=== PATIENT | female | born 1940 | race American Indian/Alaskan Native ===

== ENCOUNTER 2017-01-10 10:07 | Outpatient (CLI) | payer MEDICARE ==
--- NOTE | 2017-01-10 11:34 | Ultrasound Report ---
ULTRASOUND RENAL INDICATION: Chronic kidney disease, stage III. Diabetes mellitus. COMPARISON: None similar at this institution. FINDINGS: Renal sonography demonstrates top normal renal cortical echogenicity. Grossly preserved contours. No hydronephrosis. Slight hepatic echogenic coarsening. Right kidney measures 9.3 x 3.7 x 4.4 cm with cortical thickness of 1.5 cm. Left kidney estimated at 10.6 x 5.5 x 4.6 cm with cortical thickness of 1.6 cm. Approximately 1.8 cm cortical cyst superomedially. Urinary bladder suboptimally distended and assessed. CONCLUSION: No acute renal sonographic abnormality with few incidental findings, as described. Thank you for the opportunity to participate in this patient's care.
== END 2017-01-10 10:08 | disposition home or self-care (01) ==
LOC: US 10:07
PROVIDERS: ATTEND Internal Medicine Nephrology
DX: E11.22 Type 2 diabetes mellitus with diabetic chronic kidney disease (principal); N18.3 Chronic kidney disease, stage 3 (moderate)
CPT/HCPCS: 76770

== ENCOUNTER 2019-09-28 16:26 | Emergency (ER) | payer MEDICARE ==
--- NOTE | 2019-09-28 17:02 | Emergency Department Report ---
Blank Doc - Documentation Documentation: 79-year-old female that presents with dizziness. Denies any other symptoms. This initial assessment/diagnostic orders/clinical plan/treatment(s) is/are subject to change based on patient's health status, clinical progression and re- assessment by fellow clinical providers in the ED. Further treatment and workup at subsequent clinical providers discretion. Patient/guardians urged not to elope from the ED as their condition may be serious if not clinically assessed and managed. Initial orders include: 1- Patient sent to [facility] for further evaluation and treatment 2- labs 3- UA 4- EKG
[2019-09-28 17:50] LABS: Basophils # (Auto) 0.1 K/mm3 (0.0-0.1); Eosinophils # (Auto) 0.2 K/mm3 (0.0-0.4); Eosinophils % (Auto) 3.4 % (0.0-4.3); Hematocrit 34.9 % (30.3-42.9); Hemoglobin 11.5 gm/dl (10.1-14.3); Lymphocytes # (Auto) 1.5 K/mm3 (1.2-5.4); Mean Corpuscular HGB Conc 33 % (30-34); Mean Corpuscular Volume 88 fl (79-97); Monocytes # (Auto) 0.6 K/mm3 (0.0-0.8); Monocytes % (Auto) 10.1 % (0.0-7.3); Platelet Count 242 K/mm3 (140-440); Red Blood Count 3.95 M/mm3 (3.65-5.03); Red Cell Distribution Width 15.2 % (13.2-15.2)
[2019-09-28 18:16] LABS: Bacteria,Urine 4+ /HPF (Negative); Bilirubin,Urine NEG (Negative); Blood,Urine SM (Negative); Color,Urine Yellow (Yellow); Mucus,Urine FEW /HPF; Protein,Urine <15 mg/dL mg/dL (Negative); Sperm,Urine FEW /HPF (NP); Urobilinogen,Urine < 2.0 mg/dL (<2.0)
[2019-09-28 18:21] LABS: INR 0.99 (0.87-1.13)
[2019-09-28 18:22] LABS: Partial Thromboplastin Time 29.6 Sec. (24.2-36.6)
--- NOTE | 2019-09-28 20:58 | Emergency Department Report ---
HPI - General Chief Complaint: Dizziness Time Seen by Provider: 09/28/19 17:01 - HPI HPI: Room 4 The patient is 79-year-old female presenting with a chief complaint of lightheadedness. Patient had lightheadedness for one day. Patient states it felt same way she did when she had a UTI in the past. Patient denied ever having a headache, nausea/vomiting, chest pain or shortness of breath. Patient denies dysuria or hematuria. When asked how she is feeling down the patient replies "good." Location: [See above] Duration: [See above] Quality: [See above] Severity: [See above] Timing: [See above] Context: [See above] Modifying factors: [See above] Associated signs and symptoms: [see above] ED Past Medical Hx - Past Medical History Previous Medical History?: Yes Hx Hypertension: Yes Hx Renal Disease: Yes (stage 3) Additional medical history: HIGH CHOLESTEROL - Surgical History Additional Surgical History: C SECTION - Family History Family history: no significant - Social History Smoking Status: Former Smoker (none 30 years) Substance Use Type: None - Medications Home Medications: Home Medications Medication Instructions Recorded Confirmed Last Taken Type Sulfamethoxazole/Trimethoprim 1 each PO BID #14 tablet 09/28/19 Unknown Rx [Bactrim DS TAB] ED Review of Systems ROS: Stated complaint: LIGHT HEADED Other details as noted in HPI Constitutional: denies: fever Eyes: denies: eye pain ENT: denies: throat pain Respiratory: denies: shortness of breath Cardiovascular: denies: chest pain Endocrine: no symptoms reported Gastrointestinal: denies: abdominal pain Genitourinary: denies: dysuria, hematuria Musculoskeletal: denies: back pain Neurological: other (lightheadedness). denies: headache Physical Exam - Physical Exam Vital Signs: Vital Signs 09/28/19 17:01 Temperature 98.5 F Pulse Rate 92 H Respiratory 18 Rate Blood Pressure 209/70 O2 Sat by Pulse 96 Oximetry Physical Exam: GENERAL: The patient is well-developed well-nourished female lying on stretcher not appearing to be in acute distress. [] HEENT: Normocephalic. Atraumatic. Extraocular motions are intact. Patient has moist mucous membranes. NECK: Supple. No meningitic signs are noted. Trachea midline CHEST/LUNGS: Clear to auscultation. There is no respiratory distress noted. HEART/CARDIOVASCULAR: Regular. There is no tachycardia. There is no gallop rub or murmur. ABDOMEN: Abdomen is soft, nontender. Patient has normal bowel sounds. There is no abdominal distention. SKIN: There is no rash. There is no edema. There is no diaphoresis. NEURO: The patient is awake, alert, and oriented. The patient is cooperative. The patient has no focal neurologic deficits. The patient has normal speech. C ranial nerves II through XII grossly intact, industrial safety engineer equal bilaterally MUSCULOSKELETAL: There is no evidence of acute injury. ED Course Vital Signs 09/28/19 17:01 Temperature 98.5 F Pulse Rate 92 H Respiratory 18 Rate Blood Pressure 209/70 O2 Sat by Pulse 96 Oximetry - Reevaluation(s) Reevaluation #1: 09/28/19 23:55 Patient states she feels good ED Medical Decision Making - Lab Data Result diagrams: 09/28/19 17:20 09/28/19 23:36 Laboratory Tests 09/28/19 09/28/19 09/28/19 17:20 17:20 17:49 WBC 5.9 RBC 3.95 Hgb 11.5 Hct 34.9 MCV 88 MCH 29 MCHC 33 RDW 15.2 Plt Count 242 Lymph % (Auto) 25.0 Logan % (Auto) 10.1 H Eos % (Auto) 3.4 Baso % (Auto) 1.0 Lymph # 1.5 Logan # 0.6 Eos # 0.2 Baso # 0.1 Seg Neutrophils % 60.5 Seg Neutrophils # 3.5 PT 13.0 INR 0.99 APTT 29.6 Sodium Potassium Chloride Carbon Dioxide Anion Gap BUN Creatinine Estimated GFR BUN/Creatinine Ratio Glucose Calcium Total Bilirubin AST ALT Alkaline Phosphatase Troponin T Total Protein Albumin Albumin/Globulin Ratio Urine Color Yellow Urine Turbidity Slightly-cloudy Urine pH 5.0 Ur Specific [place] 1.011 Urine Protein <15 mg/dl Urine Glucose (UA) Neg Urine Ketones Neg Urine Blood Sm Urine Nitrite Neg Urine Bilirubin Neg Urine Urobilinogen < 2.0 Ur Leukocyte Esterase Mod Urine WBC (Auto) 52.0 H Urine RBC (Auto) 4.0 U Epithel Cells (Auto) 2.0 Urine Bacteria (Auto) 4+ Urine Mucus Few Urine Sperm Few 09/28/19 09/28/19 20:49 23:36 WBC RBC Hgb Hct MCV MCH MCHC RDW Plt Count Lymph % (Auto) Logan % (Auto) Eos % (Auto) Baso % (Auto) Lymph # Logan # Eos # Baso # Seg Neutrophils % Seg Neutrophils # PT INR APTT Sodium 142 Potassium 5.5 H 4.6 Chloride 110.3 H Carbon Dioxide 20 L Anion Gap 17 BUN 33 H Creatinine 1.7 H Estimated GFR 35 BUN/Creatinine Ratio 19 Glucose 105 H Calcium 9.4 Total Bilirubin 0.40 AST 12 ALT 5 L Alkaline Phosphatase 90 Troponin T < 0.010 Total Protein 6.9 Albumin 4.1 Albumin/Globulin Ratio 1.5 Urine Color Urine Turbidity Urine pH Ur Specific [place] Urine Protein Urine Glucose (UA) Urine Ketones Urine Blood Urine Nitrite Urine Bilirubin Urine Urobilinogen Ur Leukocyte Esterase Urine WBC (Auto) Urine RBC (Auto) U Epithel Cells (Auto) Urine Bacteria (Auto) Urine Mucus Urine Sperm - EKG Data -: EKG Interpreted by Ia EKG shows normal: sinus rhythm Rate: normal - EKG Data When compared to previous EKG there are: previous EKG unavailable Interpretation: other (no ischemic changes seen) - Radiology Data Radiology results: report reviewed (CT head), image reviewed (CT head) [address] [address] Cat Scan Report Signed Patient: RADHAMES MAR MR#: [id number] : 1940 Acct:[id number] Age/Sex: 79 / F ADM Date: 09/28/19 Loc: ED Attending Dr: Ordering Physician: KAREN GAY MD Date of Service: 09/28/19 Procedure(s): CT head/brain wo con Accession Number(s): [id number] cc: KAREN GAY MD Examination: CT of the head without contrast Clinical information: Dizziness. Altered mental status. Comparison: None Technical: Multiple axial CT images of the head were obtained without intravenous contrast. Sagittal and coronal reformats were obtained. All CTs at this facility utilize dose reduction techniques including automated exposure control, iterative reconstruction and weight based dosing when appropriate to reduce patient radiation dose to as low as reasonable achiev able. Findings: There is no CT evidence of acute intracranial hemorrhage or large territorial infarct. The ventricular system appears normal in size. There is mild generalized parenchymal atrophy. No abnormal extra-axial fluid collection is identified. Evaluation of the calvarium demonstrates no evidence of acute bony abnormality. The visualized paranasal sinuses and mastoid air cells are clear. Impression: 1. No CT evidence of acute intracranial process. Signer Name: Taylor Ramirez MD Signed: 09/28/2019 9:40 PM Workstation Name: [id number] Transcribed By: GARETH Dictated By: Taylor Ramirez MD Electronically Authenticated By: Taylor Ramirez MD Signed Date/Time: 09/28/192139 DD/ 37 TD/TT: - Differential Diagnosis hypertensive urgency, dehydration, ICH Critical care attestation.: If time is entered above; I have spent that time in minutes in the direct care of this critically ill patient, excluding procedure time. ED Disposition Clinical Impression: UTI (urinary tract infection), Hyperkalemia Disposition: - TO HOME OR SELFCARE Is pt being admited?: No Does the pt Need Aspirin: No Condition: Stable Instructions: Urinary Tract Infection in Women (ED) Additional Instructions: Return to the emergency department should you develop worsening symptoms, inability to tolerate food or liquids, high fever or any other concerns Prescriptions: Sulfamethoxazole/Trimethoprim [Bactrim DS TAB] 1 each PO BID #14 tablet Referrals: MERLE OROZCO MD [Primary Care Provider] - 3-5 Days Time of Disposition: 23:55
[2019-09-28 21:11] LABS: Alanine Aminotransferase 5 units/L (7-56); BUN/Creatinine Ratio 19; Blood Urea Nitrogen 33 mg/dL (7-17); Calcium 9.4 mg/dL (8.4-10.2)
[2019-09-28 21:12] LABS: Albumin 4.1 g/dL (3.9-5); Hemolysis Index 8
--- NOTE | 2019-09-28 21:44 | Cat Scan Report ---
Examination: CT of the head without contrast Clinical information: Dizziness. Altered mental status. Comparison: None Technical: Multiple axial CT images of the head were obtained without intravenous contrast. Sagittal and coronal reformats were obtained. All CTs at this facility utilize dose reduction techniques inc luding automated exposure control, iterative reconstruction and weight based dosing when appropriate to reduce patient radiation dose to as low as reasonable achievable. Findings: There is no CT evidence of acute intracranial hemorrhage or large territorial infarct. The ventricular system appears normal in size. There is mild generalized parenchymal atrophy. No abnormal extra-axial fluid collection is identified. Evaluation of the calvarium demonstrates no evidence of acute bony abnormality. The visualized parana catherine sinuses and mastoid air cells are clear. Impression: 1. No CT evidence of acute intracranial process. Signer Name: Taylor Ramirez MD Signed: 09/28/2019 9:40 PM Workstation Name: [id number]
[2019-09-28] MEDS ORDERED: SODIUM POLYSTYRENE 15 GM/60 ML ORAL LIQD PO ONE (21:48)
[2019-09-28] MEDS ORDERED: DEXTROSE 50% IN WATER (25GM) 50 ML SYRINGE IV ONE ×2 (21:51→23:07)
[2019-09-28] MEDS ORDERED: INSULIN REGULAR, HUMAN 100 UNITS/1 ML IV ONE (21:51)
[2019-09-28] MEDS ORDERED: ONDANSETRON 4 MG/2 ML INJ IV ONE (23:07)
[2019-09-29 00:35] VITALS: BP 110/68
== END 2019-09-29 00:20 | disposition home or self-care (01) ==
LOC: ED 16:26
DX: N39.0 Urinary tract infection, site not specified (principal); E87.5 Hyperkalemia; I12.9 Hypertensive chronic kidney disease with stage 1 through stage 4 chronic kidney disease, or unspecified chronic kidney disease; N18.3 Chronic kidney disease, stage 3 (moderate); E78.00 Pure hypercholesterolemia, unspecified; Z87.891 Personal history of nicotine dependence
CPT/HCPCS: 36415; 70450; 80053; 81001; 82962; 84132; 84484; 85025; 85610; 85730; 87076; 87086; 87186; 93005; 93010; 96374; 96375; 96376; 99285; J2405; J1815